=== PATIENT | female | born 1945 | race Caucasian/White ===

== ENCOUNTER → 2017-01-20 | Outpatient (CLI) | payer OTHER, MEDICARE | LOC: BMCIMAGING 12:51 | PROVIDERS: ATTEND Internal Medicine | DX: Z12.31 Encounter for screening mammogram for malignant neoplasm of breast (principal) | CPT/HCPCS: G0202 ==

== ENCOUNTER → 2018-01-21 | Outpatient (CLI) | payer OTHER, MEDICARE | LOC: BMCIMAGING 08:47 | PROVIDERS: ATTEND Internal Medicine | DX: Z12.31 Encounter for screening mammogram for malignant neoplasm of breast (principal) ==

== ENCOUNTER → 2018-05-02 | Outpatient (CLI) | payer OTHER, MEDICARE | LOC: BMCIMAGING 11:05 | PROVIDERS: ATTEND Internal Medicine Geriatric Medicine | DX: M25.562 Pain in left knee (principal); M17.12 Unilateral primary osteoarthritis, left knee ==